=== PATIENT | female | born 1970 ===

== ENCOUNTER 2018-07-30 16:03 | Emergency (ER) | payer SELFPAY ==
[2018-07-30 16:37] VITALS: RESP 18
--- NOTE | 2018-07-30 17:12 | ED PDOC ---
HPI: Female Pain Time Seen by Provider: 07/30/18 16:22 Chief Complaint (Nursing): Female Genitourinary Chief Complaint (Provider): Painful urination History Per: Patient History/Exam Limitations: no limitations Additional Complaint(s): 48 y/o F with no significant PMH who presents with painful urination since yesterday. + urinary frequency. Denies fever, chills, night sweats, abnormal vaginal discharge or bleeding. Past Medical History Reviewed: Historical Data, Nursing Documentation, Vital Signs Vital Signs: Last Vital Signs Temp 99.4 F 07/30/18 16:36 Pulse 73 07/30/18 16:36 Resp 18 07/30/18 16:36 BP 114/61 07/30/18 16:36 Pulse Ox 98 07/30/18 16:36 - Medical History PMH: No Chronic Diseases - Family History Family History: States: Unknown Family Hx - Home Medications Home Medications: Ambulatory Orders Medication Instructions Recorded Nitrofurantoin Macrocrystal 100 mg PO BID 5 Days capsule 07/30/18 [Nitrofurantoin] - Allergies Allergies/Adverse Reactions: Allergies Allergy/AdvReac Type Severity Reaction Status Date / Time No Known Allergies Allergy Verified 07/30/18 16:11 Physical Exam - Reviewed Nursing Documentation Reviewed: Yes Vital Signs Reviewed: Yes - Physical Exam Gastrointestinal/Abdominal: Positive for: Tenderness (suprapubic). Negative for: Guarding, Rebound Neurological/Psych: Positive for: Awake, Alert, Oriented - ECG O2 Sat by Pulse Oximetry: 98 Medical Decision Making Medical Decision Making: Urine dip Urine culture Urine preg Urine dip: LE: small, nitrate positive, Blood: moderate. Nitrofurantoin 100mg PO x 1. Stable for d/c home with return instructions given. Disposition - Clinical Impression Clinical Impression: Urinary tract infection - Patient ED Disposition Is Patient to be Admitted: No Counseled Patient/Family Regarding: Studies Performed, Diagnosis, Rx Given - Disposition Referrals: [facility] [Outside] Disposition: Routine/Home Disposition Time: 17:30 Condition: STABLE Additional Instructions: Complete full course of antibiotics as prescribed. Return to ER if you develop fevers or chills or pain does not improve after being on antibiotics for several days. Prescriptions: Nitrofurantoin Macrocrystal [Nitrofurantoin] 100 mg PO BID 5 Days capsule Forms: [employer] (Japanese) Print Language: INDONESIAN
[2018-07-30 17:39] VITALS: BP 112/60; PULSE 70; TEMP 99.1; O2SAT 99
== END 2018-07-30 17:37 | disposition home or self-care (01) ==
LOC: H.ER 16:03 → SUPCPDRO 16:03 → H.ER 17:37
DX: N39.0 Urinary tract infection, site not specified (principal)